=== PATIENT | male | born 1975 | race American Indian/Alaskan Native ===

== ENCOUNTER 2024-07-01 17:15 | Emergency (ER) | payer BC, SELFPAY ==
[2024-07-01 17:23] VITALS: BP 130/88
--- NOTE | 2024-07-01 19:08 | ED.GENMED ---
History of Present Illness
General
Chief Complaint: Musculo-Skeletal Complaint
Source: patient
Exam Limitations: none
Time Seen by Provider: 07/01/24 18:55
Nursing documentation reviewed up to this point in time: agreed with
History of Present Illness
History of Present Illness:
Patient is a 48-year male who complains of left shoulder pain. He lifted a heavy propane tank at about 3 hours after lifting the propane tank for pain in his left shoulder. Took ibuprofen yesterday Tylenol today for complaints of pain with moving
his left arm. He denies any actual trauma. He denies any numbness tingling weakness. He denies any fever chills redness to the area.
Review of Systems
Review of Systems
Allergies reviewed?: Yes
All Other Systems: ROS reviewed and negative except as documented in HPI and ROS
Constitutional: Reports no symptoms
Musculoskeletal: Reports other (left shoulder pain )
Skin: Reports no symptoms
Neurological: Reports no symptoms
Psychiatric: Reports no symptoms
Phy Exam
General Physical Exam
General Presentation: no apparent distress
General age: appears stated age
General Skin: warm and dry
General Habitus: normal
General Mental: alert
General Hydration: appears well hydrated
Neurological Exam
Neurological Exam: alert and oriented x3
Musculoskeletal Exam
Musculoskeletal Exam: other (Left upper extremity pulses normal inspection to left shoulder no erythema pain with abduction normal mental health nurse strength)
Skin Exam
Skin Exam: normal color and warm/dry
Psychiatric Exam
Psychiatric Exam: normal mood/affect
Course
Orders/Labs/Results
Orders:
Orders
07/01/24 17:25
CR Shoulder - Left Min 2 View* Urgent
Comment:
Reason For Exam: injury
07/01/24 19:08
Ketorolac [Toradol] 30 mg IM NOW STA
07/01/24 19:48
Sling Left-Treatment ONCE
Vital Signs
Initial and Last Documented VS:
Initial Vital Signs
Temp Pulse Resp BP Pulse Ox
98.3 F 70 18 130/88 98
07/01/24 17:23 07/01/24 17:23 07/01/24 17:23 07/01/24 17:23 07/01/24 17:23
Last Documented Vital Signs
Temp Pulse Resp BP Pulse Ox
98.3 F 69 20 129/81 97
07/01/24 17:23 07/01/24 20:00 07/01/24 20:00 07/01/24 20:00 07/01/24 20:00
MDM/Problems Addressed
Differential Diagnosis Includes:
Not limited to sprain strain rotator cuff injury
MDM/Problems Addressed:
Symptoms are consistent likely strain possible rotator cuff injury. Will obtain x-ray though likely to be negative with sling NSAIDs and outpatient Ortho follow-up.
1950:X-ray reviewed by me findings consistent possible calcific tendinitis no fracture no dislocation. Plan to DC home with Ortho follow-up as document
*Radiology
Radiology exam reviewed: radiology read reviewed
*Critical Care Note
Total Time (30-74mins, 75-104mins- exclusive of procedures): Not Applicable
ED Attending Note
-
Portions of this chart may have been created with voice recognition software.� Occasional wrong word or��sound alike� substitutions may have occurred due to the inherent limitations of voice recognition software.
Discharge Plan
Departure
Patient Disposition: Home (Routine Discharge)
Date of Disposition: 07/01/24
Time of Disposition: 19:49
Patient with high blood pressure during this ER visit?: Yes
Condition: Fair
Covid-19: Not Applicable
Discharge Problem:
Left shoulder strain
Instructions: Ibuprofen, Shoulder Pain ED
Referrals:
Larry Amaro MD [Active] -
Activity Restrictions/Additional Instructions:
You may wear a sling for support however remove several times a day and do gentle range of motion exercises. Continue to ice the affected area for the next 24 hours 20 minutes at a time several times a day. Ibuprofen 600 mg every hours of food.
Call orthopedics for an appointment in next several days for reevaluation. return if any worsening of symptoms.
Interventions
Interventions:
*Risk Screen - Suicide Last Done: 07/01/24 17:23
*General Assessment Last Done: 07/01/24 17:23
*Neglect/Abuse Screening Last Done: 07/01/24 17:23
ED- Fall Risk Assessment Last Done: 07/01/24 20:06
*ED COVID-19 Vaccine History Last Done: 07/01/24 20:06
*Nursing Disposition Last Done: 07/01/24 20:06
ED-Musculoskeletal Assessment Last Done: 07/01/24 18:19
Discharge Date and Time
Discharge Date/Time: 07/01/24 20:07
Print Language: TUVALU[place]
[2024-07-01] MEDS: TORADOL 30 MG IM (19:17)
[2024-07-01 20:00] VITALS: BP 129/81
== END 2024-07-01 20:07 | disposition home or self-care (01) ==
LOC: EMR 17:15
PROVIDERS: EMERGENCY PHYSICIAN Student in an Organized Health Care Education/Training Program
DX: S46.912A Strain of unspecified muscle, fascia and tendon at shoulder and upper arm level, left arm, initial encounter (principal); X50.0XXA Overexertion from strenuous movement or load, initial encounter; R03.0 Elevated blood-pressure reading, without diagnosis of hypertension; E11.9 Type 2 diabetes mellitus without complications; E78.00 Pure hypercholesterolemia, unspecified
CPT/HCPCS: 99284; 96372; 73030